=== PATIENT | male | born 1980 | race Caucasian/White ===

== ENCOUNTER 2018-05-31 15:23 | Emergency (ER) | payer OTHER ==
[~2018-05-31] VITALS: Ht 177.8 cm; Wt 88.6 kg
[2018-05-31 15:49] VITALS: Ht 177.8 cm; Wt 88.6 kg
[2018-05-31] MEDS ORDERED: ROBAXIN-750750 MG PO (16:51)
[2018-05-31 16:57] VITALS: BP 109/49
== END 2018-05-31 16:49 | disposition home or self-care (01) ==
LOC: D.ER 15:23
DX: S43.402A Unspecified sprain of left shoulder joint, initial encounter (principal); W17.89XA Other fall from one level to another, initial encounter; Y93.89 Activity, other specified; Y92.019 Unspecified place in single-family (private) house as the place of occurrence of the external cause; F17.200 Nicotine dependence, unspecified, uncomplicated

== ENCOUNTER 2020-02-28 02:38 | Inpatient (IN) | payer MEDICAID ==
[~2020-02-28] VITALS: Ht 177.8 cm; Wt 99.8 kg
[~2020-02-28 02:38] MED LIST: ROBAXIN-750750 MG PO
[2020-02-28 03:10] VITALS: BP 112/61
[2020-02-28 03:21] LABS: BASOPHILS 0.2 % (0-2); EOSINOPHILS 0.5 % (0-7); HEMATOCRIT 49.5 % (42.0-54.0); HEMOGLOBIN 16.4 g/dL (13.5-17.5); IMMATURE GRANULOCYTES 0.2 % (0-5); LYMPHOCYTES 13.2 % (15-50); MCH 32.6 pg (26.0-34.0); MCHC 33.1 g/dL (31.0-37.0); MCV 98.4 fL (80.0-100.0); MEAN PLATELET VOLUME 10.2 fL (7.4-10.4); MONOCYTES 9.5 % (2-11); NEUTROPHILS 76.4 % (40-80); PLATELET COUNT 205 10x3/uL (130-400); RBC 5.03 10x6/uL (4.20-6.10); RDW 13.3 % (11.5-14.5); WBC 12.9 10x3/uL (4.8-10.8)
[2020-02-28 03:30] LABS: CALC OSMOLALITY 274 mosm/kg (275-300); CALCIUM 8.2 mg/dL (8.5-10.1); CARBON DIOXIDE 23.8 mmol/L (21.0-32.0); CHLORIDE - SERUM 105 mmol/L (98-107); CREATININE - SERUM 0.8 mg/dL (0.6-1.3); GLUCOSE 118 mg/dL (74-106); SODIUM 138 mmol/L (136-145); UREA NITROGEN 6 mg/dL (7-18); eGFR NON AFRICAN AMERICAN > 90 mL/min (90-120)
[2020-02-28 03:31] LABS: APTT 24.2 SECONDS (22.8-39.4); INR 0.91 (0.85-1.17); PROTIME 12.2 SECONDS (11.6-15.0)
[2020-02-28 03:57] LABS: ALBUMIN 3.9 g/dL (3.4-5.0); ALKALINE PHOSPHATASE 67 U/L (30-120); ALT (SGPT) 64 U/L (10-68); PRO BNP 77 pg/mL (0-125); PROTEIN - SERUM 7.3 g/dL (6.4-8.2)
[2020-02-28 03:59] LABS: CREATINE KINASE 1217 UL (21-232); TROPONIN-I 0.017 ng/mL (0.000-0.060)
[2020-02-28 04:00] LABS: CKMB 4.2 U/L (0.0-3.6)
[2020-02-28 05:35] VITALS: BP 113/69
[2020-02-28 09:08] VITALS: BP 145/73
[2020-02-28 11:11] VITALS: BP 145/73; BMI 31.6
[2020-02-28 16:00] VITALS: BP 132/66
[2020-02-28 21:11] VITALS: BP 132/93
[2020-02-29] VITALS: BP 132/75
[2020-02-29 04:00] VITALS: BP 155/87
[2020-02-29 05:38] LABS: HEMATOCRIT 43.6 % (42.0-54.0)
[2020-02-29 08:26] VITALS: BP 153/101
[2020-02-29 13:09] VITALS: BP 157/78
--- NOTE | 2020-02-29 15:58 | MORECARE ---
CASE MANAGEMENT DISCHARGE SUMMARY PATIENT: HA MAHMOOD UNIT: [id number] ADM DATE: 02/28/20 AGE: 39 : 76 SEX: M ROOM/BED: D.2231 AUTHOR: CHRISTOPHER LAMA PHYSICIAN: REFERRING PHYSICIAN: TD PRUITT MD DATE OF SERVICE: 02/29/20 Discharge Plan Patient Name: HA MAHMOOD [facility] [facility] 1980 Planned Disposition: Home Anticipated Discharge Date: Discharge Date: Expected LOS: Initial Reviewer: [email or web address] Initial Review Date: 02/28/2020 Generated: 02/29/20 4:57 pm DCPIA - Discharge Planning Initial Assessment Updated by [email or web address]: Delphine Madison on 02/29/20 3:56 pm * Is the patient Alert and Oriented? Yes * How many steps to enter\exit or inside your home? van * PCP NO PCP * [facility] * Preadmission Environment Home Alone * ADLs Independent * Equipment None * List name and contact numbers for known caregivers / representatives who currently or will assist patient after discharge: KRISTI MAHMOOD - FATHER - [phone], * Verbal permission to speak to the caregivers and representatives has been obtained from the patient. Yes * Community resources currently utilized None * Additional services required to return to the preadmission environment? No * Can the patient safely return to the preadmission environment? Yes * Has this patient been hospitalized within the prior 30 days at any hospital? No Patient Name: HA MAHMOOD Page 54938 at 1558 All edits/amendments must be made on the electronic document DICTATION DATE: 02/29/20 1557 GENERAL TECHNICIAN: IRAIS 02/29/20 1557 RPT#: [id number] DC DATE: STATUS: ADM IN [facility] [address] [place] [address] END OF REPORT
[2020-02-29 16:05] VITALS: BP 104/59
--- NOTE | 2020-02-29 16:11 | MORECARE ---
CASE MANAGEMENT DISCHARGE SUMMARY PATIENT: HA MAHMOOD UNIT: [id number] ADM DATE: 02/28/20 AGE: 39 : 76 SEX: M ROOM/BED: D.2231 AUTHOR: KELBY,DOC PHYSICIAN: REFERRING PHYSICIAN: TD PRUITT MD DATE OF SERVICE: 02/29/20 Discharge Plan Patient Name: HA MAHMOOD Facility: [facility]:[place] : 1980 Planned Disposition: Home Anticipated Discharge Date: Discharge Date: Expected LOS: Initial Reviewer: [email or web address] Initial Review Date: 02/28/2020 Generated: 02/29/20 5:10 pm Comments DCP- Discharge Planning Updated by [email or web address]: Delphine Madison on 02/29/20 3:[address] Patient Name: HA MAHMOOD Admission Status: ER Accout number: [id number] Admission Date: 02-28-2020 : 1980 Admission Diagnosis: Attending: TD PRUITT Current LOS: 1 Anticipated DC Date: Planned Disposition: Home Primary Insurance: MEDICAID [place] PENDING Discharge Planning Comments: CM met with patient at bedside after explaining CM role and obtaining verbal consent. Patient lives his conversion van where he is independent with his care and plans to return there upon discharge. Patient states he has been off work for approximately 2 yrs on [employer]. 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 Patient has a broken ankle / leg. and will be non weight bearing for 6-8 wks. Patient has Medicaid pending which will help with medical, medication and possible transportation to f/u doctor appointments once it is approved. CM discussed availability / needs of home health and medical equipment. Patient is going to need either crutches or walker upon discharge. He will also need help with discharge medications. CM will see about finding DME needs and medication. CM gave patient SNAP application to help with food. CM will give information on [place] and [place] [facility] information. Patient states he may be able to get his Dad to drive him home upon discharge. CM will continue to follow and assist as needed with discharge planning / needs. Element Setter: Delphine Madison DCPIA - Discharge Planning Initial Assessment Updated by [email or web address]: Delphine Madison on 02/29/20 3:56 pm * Is the patient Alert and Oriented? Yes * How many steps to enter\exit or inside your home? van * PCP NO PCP * [facility] * Preadmission Environment Home Alone * ADLs Independent * Equipment None * List name and contact numbers for known caregivers / representatives who currently or will assist patient after discharge: KRISTI MAHMOOD - [facility] - [phone], * Verbal permission to speak to the caregivers and representatives has been obtained from the patient. Yes * Community resources currently utilized None * Additional services required to return to the preadmission environment? No * Can the patient safely return to the preadmission environment? Yes * Has this patient been hospitalized within the prior 30 days at any hospital? No Last DP export: 02/29/20 2:58 pm Patient Name: HA MAHMOOD Page [id number] at 1611 All edits/amendments must be made on the electronic document DICTATION DATE: 02/29/20 161 HUMANITIES DIVISION CHAIR: IRAIS 02/29/20 161 RPT#: [id number] DC DATE: STATUS: ADM IN [facility] [address] [place] [address] END OF REPORT
[2020-02-29 19:51] VITALS: BP 187/92
[2020-03-01] VITALS: BP 146/90
[2020-03-01 04:00] VITALS: BP 145/103
[2020-03-01 05:24] LABS: HEMATOCRIT 40.5 % (42.0-54.0); HEMOGLOBIN 12.8 g/dL (13.5-17.5)
[2020-03-01 08:38] LABS: CKMB 0.6 U/L (0.0-3.6); CREATINE KINASE 363 UL (21-232); TROPONIN-I 0.019 ng/mL (0.000-0.060)
[2020-03-01 08:53] VITALS: BP 167/97
[2020-03-01 10:28] VITALS: BP 144/82
[2020-03-01 12:54] VITALS: BMI 31.5
[2020-03-01 14:15] VITALS: Ht 177.8 cm; Wt 99.8 kg
[2020-03-01 17:03] VITALS: BP 155/92
[2020-03-01 20:19] VITALS: BP 154/88
[2020-03-02 01:04] VITALS: BP 133/76
[2020-03-02 04:59] VITALS: BP 135/77
[2020-03-02 05:21] LABS: BASOPHILS 0.3 % (0-2); EOSINOPHILS 3.2 % (0-7); HEMOGLOBIN 13.9 g/dL (13.5-17.5); IMMATURE GRANULOCYTES 0.1 % (0-5); LYMPHOCYTES 26.7 % (15-50); MCH 32.8 pg (26.0-34.0); MCHC 33.1 g/dL (31.0-37.0); MCV 99.1 fL (80.0-100.0); MEAN PLATELET VOLUME 10.6 fL (7.4-10.4); MONOCYTES 10.4 % (2-11); NEUTROPHILS 59.3 % (40-80); PLATELET COUNT 199 10x3/uL (130-400); RBC 4.24 10x6/uL (4.20-6.10); RDW 12.8 % (11.5-14.5); WBC 8.7 10x3/uL (4.8-10.8)
[2020-03-02 05:30] LABS: CALC OSMOLALITY 275 mosm/kg (275-300); CALCIUM 8.8 mg/dL (8.5-10.1); CARBON DIOXIDE 29.5 mmol/L (21.0-32.0); CHLORIDE - SERUM 100 mmol/L (98-107); CREATININE - SERUM 0.9 mg/dL (0.6-1.3); GLUCOSE 96 mg/dL (74-106); POTASSIUM - SERUM 3.6 mmol/L (3.5-5.1); SODIUM 139 mmol/L (136-145); UREA NITROGEN 8 mg/dL (7-18); eGFR NON AFRICAN AMERICAN > 90 mL/min (90-120)
[2020-03-02 09:19] VITALS: BP 146/93
[2020-03-02 14:42] VITALS: BP 137/90
[2020-03-02 20:16] VITALS: BP 131/80
--- NOTE | 2020-03-02 20:49 | MORECARE ---
CASE MANAGEMENT DISCHARGE SUMMARY PATIENT: HA MAHMOOD UNIT: [id number] ADM DATE: 02/28/20 AGE: 39 : 76 SEX: M ROOM/BED: D.2131 AUTHOR: KELBY,DOC PHYSICIAN: REFERRING PHYSICIAN: TD PRUITT MD DATE OF SERVICE: 03/02/20 Discharge Plan Patient Name: HA MAHMOOD Facility: [facility]:[place] : 1980 Planned Disposition: Home Anticipated Discharge Date: Discharge Date: Expected LOS: Initial Reviewer: [email or web address] Initial Review Date: 02/28/2020 Generated: 03/02/20 9:48 pm Comments DCP- Discharge Planning Updated by [email or web address]: Delphine Madison on 03/02/20 7:[address] LATE ENTRY 03/01/20 CM gave patient SNAP application and faxed to [facility] office for expedite. CM also faxed in notification that patient was in hospital to his chief digital media officer. CM CAN'T FIX THAT THE PATIENT LIVES IN A VAN. CM will see about assistance for DME needs and meds. CM will continue to follow and assist as needed with discharge planning / needs. DCP- Discharge Planning Updated by [email or web address]: Delphine Madison on 02/29/20 3:[address] Patient Name: HA MAHMOOD Admission Status: ER Accout number: [id number] Admission Date: 02-28-2020 : 1980 Admission Diagnosis: Attending: TD PRUITT Current LOS: 1 Anticipated DC Date: Planned Disposition: Home Primary Insurance: MEDICAID [place] PENDING Discharge Planning Comments: CM met with patient at bedside after explaining CM role and obtaining verbal consent. Patient lives his conversion van where he is independent with his care and plans to return there upon discharge. Patient states he has been off work for approximately 2 yrs on [employer]. 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 Patient has a broken ankle / leg. and will be non weight bearing for 6-8 wks. Patient has Medicaid pending which will help with medical, medication and possible transportation to f/u doctor appointments once it is approved. CM discussed availability / needs of home health and medical equipment. Patient is going to need either crutches or walker upon discharge. He will also need help with discharge medications. CM will see about finding DME needs and medication. CM gave patient SNAP application to help with food. CM will give information on food [place] and long term information. Patient states he may be able to get his Dad to drive him home upon discharge. CM will continue to follow and assist as needed with discharge planning / needs. Database Development Project Manager: Delphine Madison DCPIA - Discharge Planning Initial Assessment Updated by [email or web address]: Delphine Madison on 02/29/20 3:56 pm * Is the patient Alert and Oriented? Yes * How many steps to enter\exit or inside your home? van * PCP NO PCP * [facility] * Preadmission Environment Home Alone * ADLs Independent * Equipment None * List name and contact numbers for known caregivers / representatives who currently or will assist patient after discharge: KRISTI MAHMOOD - [facility] - [phone], * Verbal permission to speak to the caregivers and representatives has been obtained from the patient. Yes * Community resources currently utilized None * Additional services required to return to the preadmission environment? No * Can the patient safely return to the preadmission environment? Yes * Has this patient been hospitalized within the prior 30 days at any hospital? No Last DP export: 02/29/20 3:11 pm Patient Name: HA MAHMOOD Page 56791 at 2049 All edits/amendments must be made on the electronic document DICTATION DATE: 03/02/202047 ENROLLMENT NURSE: IRAIS 03/02/202047 RPT#: [id number] DC DATE: STATUS: ADM IN [facility] [address] [place] [address] END OF REPORT
--- NOTE | 2020-03-03 06:43 | OP ---
PATIENT NAME: HA MAHMOOD MEDICAL RECORD: [id number] :[birth year] LOCATION:D. D.2131 ADMISSION DATE:02/28/20 SURGEON: TD PRUITT MD DATE OF OPERATION: 02/28/2020 PREOPERATIVE DIAGNOSIS: Displaced spiral tib-fib fracture. POSTOPERATIVE DIAGNOSIS: Displaced spiral tib-fib fracture. PROCEDURE: Open reduction internal fixation of right tib-fib fracture. SURGEON: Td Pruitt MD HEATING UNIT INSTALLER: AMAN Aparicio ANESTHESIOLOGIST: Jonatan Burgess MD INTRAOPERATIVE COMPLICATIONS: Essentially none. SUMMARY OF PATHOLOGIC FINDINGS: The patient had a spiral distal tibia fracture well above the articular surface, but also had an elongated spiral fibular fracture proximally that was not addressed operatively as the patient did not have neurovascular findings and it was well aligned postoperatively. A distal medial tibial plate from [employer] was utilized in a subcutaneous insertion fashion again under direct fluoroscopy. OPERATIVE SUMMARY IN DETAIL: After obtaining the appropriate preoperative orthopedic surgery consent as well as anesthetic consultation, evaluation and clearance, the patient was brought to the operating room and placed on the operating table in a supine position. After general laryngeal mask airway was administered, tourniquet was placed on the proximal aspect of the right lower extremity. Right lower extremity was prepped and draped in routine sterile fashion. The leg was elevated and exsanguinated, tourniquet was inflated to 350 mmHg. After appropriate timeout was taken and agreed upon by all given the patient's unique identifiers, a fluoroscopic-guided incision was made over the medial aspect of the distal tibia exactly over the medial tibial malleolus, subcutaneous periosteal elevation was done in order to not disrupt the skin to appropriate proximal point. The plate was then inserted and then again under direct fluoroscopic guidance, the distal screw was placed followed by proximal screw. The fibula was held anatomically restored in both AP and lateral planes and a sterile drill and fill was done with both combination of compression and locking screws. This did result in excellent AP reconstruction with only slight displacement in the lateral plane. Having completed, this wound was irrigated and closed with #1 Vicryl, 2-0 Vicryl, and skin mabel by AMAN Aparicio. Sterile dressings were applied. Tourniquet was deflated and a posterior L and U splint was applied. The patient was awakened, taken to recovery room in stable condition. All final needle and sponge counts were correct. TRANSINT:[id number] Voice Confirmation ID: [id number] DOCUMENT ID: [id number] OPERATIVE REPORT [id number] HA MAHMOOD MD, TD DESAI at 0643 CC: [id number] DICTATION DATE: 02/29/20 1023 PAPER COATER: 02/29/20 2133 ADM IN [facility] [address] [place] [address]
[2020-03-03 08:55] VITALS: BP 122/85
[2020-03-03 12:22] VITALS: BP 102/86
[2020-03-03 17:10] VITALS: BP 132/82
[2020-03-03 20:22] VITALS: BP 133/98
[2020-03-04 04:35] LABS: BASOPHILS 0.2 % (0-2); EOSINOPHILS 5.8 % (0-7); HEMATOCRIT 39.2 % (42.0-54.0); HEMOGLOBIN 12.6 g/dL (13.5-17.5); IMMATURE GRANULOCYTES 0.3 % (0-5); LYMPHOCYTES 22.1 % (15-50); MCHC 32.1 g/dL (31.0-37.0); MCV 99.5 fL (80.0-100.0); MEAN PLATELET VOLUME 10.7 fL (7.4-10.4); NEUTROPHILS 59.6 % (40-80); RBC 3.94 10x6/uL (4.20-6.10); RDW 12.6 % (11.5-14.5); WBC 9.1 10x3/uL (4.8-10.8)
[2020-03-04 04:45] LABS: PLATELET COUNT 254 10x3/uL (130-400)
[2020-03-04 04:46] LABS: CALC OSMOLALITY 264 mosm/kg (275-300); CALCIUM 8.3 mg/dL (8.5-10.1); CARBON DIOXIDE 30.9 mmol/L (21.0-32.0); CHLORIDE - SERUM 99 mmol/L (98-107); GLUCOSE 113 mg/dL (74-106); POTASSIUM - SERUM 3.7 mmol/L (3.5-5.1); SODIUM 133 mmol/L (136-145); UREA NITROGEN 8 mg/dL (7-18); eGFR NON AFRICAN AMERICAN 87 mL/min (90-120)
[2020-03-04 13:25] VITALS: BP 139/80
[2020-03-04 20:00] VITALS: BP 104/77
[2020-03-05] VITALS: BP 148/84
[2020-03-05 04:00] VITALS: BP 141/88
[2020-03-05 04:31] LABS: BASOPHILS 0.2 % (0-2); EOSINOPHILS 5.4 % (0-7); HEMATOCRIT 38.9 % (42.0-54.0); HEMOGLOBIN 12.2 g/dL (13.5-17.5); IMMATURE GRANULOCYTES 0.2 % (0-5); MCH 31.4 pg (26.0-34.0); MCHC 31.4 g/dL (31.0-37.0); MEAN PLATELET VOLUME 10.2 fL (7.4-10.4); MONOCYTES 13.8 % (2-11); NEUTROPHILS 57.4 % (40-80); PLATELET COUNT 285 10x3/uL (130-400); RBC 3.89 10x6/uL (4.20-6.10); RDW 12.7 % (11.5-14.5); WBC 8.9 10x3/uL (4.8-10.8)
[2020-03-05 05:03] LABS: CALC OSMOLALITY 268 mosm/kg (275-300); CALCIUM 8.7 mg/dL (8.5-10.1); CARBON DIOXIDE 29.8 mmol/L (21.0-32.0); CHLORIDE - SERUM 99 mmol/L (98-107); GLUCOSE 106 mg/dL (74-106); POTASSIUM - SERUM 4.1 mmol/L (3.5-5.1); SODIUM 135 mmol/L (136-145); UREA NITROGEN 10 mg/dL (7-18); eGFR NON AFRICAN AMERICAN 87 mL/min (90-120)
[2020-03-05] MEDS ORDERED: ELIQUIS2.5 MG PO (09:37)
[2020-03-05 09:38] VITALS: BP 143/84
[2020-03-05] MEDS ORDERED: DILAUDID4 MG PO (09:38)
--- NOTE | 2020-03-05 10:24 | MORECARE ---
CASE MANAGEMENT DISCHARGE SUMMARY PATIENT: HA MAHMOOD UNIT: [id number] ADM DATE: 02/28/20 AGE: 39 : 76 SEX: M ROOM/BED: D.2222 AUTHOR: KELBY,DOC PHYSICIAN: REFERRING PHYSICIAN: TD PRUITT MD DATE OF SERVICE: 03/05/20 Discharge Plan Patient Name: HA MAHMOOD Facility: [facility]:[place] : 1980 Planned Disposition: Home Anticipated Discharge Date: Discharge Date: Expected LOS: Initial Reviewer: [email or web address] Initial Review Date: 02/28/2020 Generated: 03/05/20 11:23 am Comments DCP- Discharge Planning Updated by [email or web address]: Delphine Madison on 03/02/20 7:[address] LATE ENTRY 03/01/20 CM gave patient SNAP application and faxed to [facility] office for expedite. CM also faxed in notification that patient was in hospital to his staff antisubmarine officer. CM CAN'T FIX THAT THE PATIENT LIVES IN A VAN. CM will see about assistance for DME needs and meds. CM will continue to follow and assist as needed with discharge planning / needs. DCP- Discharge Planning Updated by [email or web address]: Delphine Madison on 02/29/20 3:[address] Patient Name: HA MAHMOOD Admission Status: ER Accout number: [id number] Admission Date: 02-28-2020 : 1980 Admission Diagnosis: Attending: TD PRUITT Current LOS: 1 Anticipated DC Date: Planned Disposition: Home Primary Insurance: MEDICAID [place] PENDING Discharge Planning Comments: CM met with patient at bedside after explaining CM role and obtaining verbal consent. Patient lives his conversion van where he is independent with his care and plans to return there upon discharge. Patient states he has been off work for approximately 2 yrs on [employer]. 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 Patient has a broken ankle / leg. and will be non weight bearing for 6-8 wks. Patient has Medicaid pending which will help with medical, medication and possible transportation to f/u doctor appointments once it is approved. CM discussed availability / needs of home health and medical equipment. Patient is going to need either crutches or walker upon discharge. He will also need help with discharge medications. CM will see about finding DME needs and medication. CM gave patient SNAP application to help with food. CM will give information on [place] and long term information. Patient states he may be able to get his Dad to drive him home upon discharge. CM will continue to follow and assist as needed with discharge planning / needs. Dental Technician: Delphine Madison DCPIA - Discharge Planning Initial Assessment Updated by [email or web address]: Delphine Madison on 02/29/20 3:56 pm * Is the patient Alert and Oriented? Yes * How many steps to enter\exit or inside your home? van * PCP NO PCP * [facility] * Preadmission Environment Home Alone * ADLs Independent * Equipment None * List name and contact numbers for known caregivers / representatives who currently or will assist patient after discharge: KRISTI MAHMOOD - [facility] - [phone], * Verbal permission to speak to the caregivers and representatives has been obtained from the patient. Yes * Community resources currently utilized None * Additional services required to return to the preadmission environment? No * Can the patient safely return to the preadmission environment? Yes * Has this patient been hospitalized within the prior 30 days at any hospital? No External Providers External Provider: OTHER-OTHER Next Contact Date: Service Request Date: Service Type: Resolution: Reviewer: Comments: Last DP export: 03/02/20 7:49 pm Patient Name: HA MAHMOOD Page [phone] at 1024 All edits/amendments must be made on the electronic document DICTATION DATE: 03/05/20 1023 CONFERENCE SERVICE COORDINATOR: IRAIS 03/05/20 1023 RPT#: [id number] DC DATE: STATUS: ADM IN [facility] [address] [place] [address] END OF REPORT
[2020-03-05 13:06] VITALS: BP 110/72
[2020-03-05 16:28] VITALS: BP 133/84
[2020-03-05 20:00] VITALS: BP 139/77
[2020-03-06] VITALS: BP 140/74
[2020-03-06 04:00] VITALS: BP 137/70
[2020-03-06 05:34] LABS: BASOPHILS 0.4 % (0-2); EOSINOPHILS 6.3 % (0-7); HEMATOCRIT 37.4 % (42.0-54.0); IMMATURE GRANULOCYTES 0.2 % (0-5); MCH 31.9 pg (26.0-34.0); MCHC 32.1 g/dL (31.0-37.0); MCV 99.5 fL (80.0-100.0); MEAN PLATELET VOLUME 10.2 fL (7.4-10.4); MONOCYTES 17.2 % (2-11); NEUTROPHILS 56.9 % (40-80); PLATELET COUNT 316 10x3/uL (130-400); RBC 3.76 10x6/uL (4.20-6.10); RDW 12.7 % (11.5-14.5); WBC 8.3 10x3/uL (4.8-10.8)
[2020-03-06 05:47] LABS: CALC OSMOLALITY 275 mosm/kg (275-300); CALCIUM 8.9 mg/dL (8.5-10.1); CARBON DIOXIDE 28.1 mmol/L (21.0-32.0); CHLORIDE - SERUM 102 mmol/L (98-107); GLUCOSE 108 mg/dL (74-106); POTASSIUM - SERUM 4.1 mmol/L (3.5-5.1); SODIUM 138 mmol/L (136-145); UREA NITROGEN 11 mg/dL (7-18); eGFR NON AFRICAN AMERICAN 87 mL/min (90-120)
[2020-03-06 09:00] VITALS: BP 137/68
[2020-03-06 14:18] VITALS: BP 120/74
[2020-03-06 20:00] VITALS: BP 128/84
[2020-03-07] VITALS: BP 130/76
[2020-03-07 04:00] VITALS: BP 131/84
[2020-03-07 05:28] LABS: BASOPHILS 0.3 % (0-2); EOSINOPHILS 5.9 % (0-7); HEMATOCRIT 37.3 % (42.0-54.0); HEMOGLOBIN 11.9 g/dL (13.5-17.5); IMMATURE GRANULOCYTES 0.4 % (0-5); LYMPHOCYTES 25.8 % (15-50); MCH 31.6 pg (26.0-34.0); MCHC 31.9 g/dL (31.0-37.0); MCV 98.9 fL (80.0-100.0); MEAN PLATELET VOLUME 10.4 fL (7.4-10.4); MONOCYTES 13.2 % (2-11); NEUTROPHILS 54.4 % (40-80); PLATELET COUNT 339 10x3/uL (130-400); RBC 3.77 10x6/uL (4.20-6.10); RDW 12.7 % (11.5-14.5); WBC 7.6 10x3/uL (4.8-10.8)
[2020-03-07 05:55] LABS: CALC OSMOLALITY 277 mosm/kg (275-300); CALCIUM 8.7 mg/dL (8.5-10.1); CARBON DIOXIDE 30.9 mmol/L (21.0-32.0); CHLORIDE - SERUM 101 mmol/L (98-107); GLUCOSE 107 mg/dL (74-106); POTASSIUM - SERUM 4.1 mmol/L (3.5-5.1); SODIUM 139 mmol/L (136-145); UREA NITROGEN 13 mg/dL (7-18); eGFR NON AFRICAN AMERICAN 87 mL/min (90-120)
[2020-03-07 17:50] VITALS: BP 139/82
[2020-03-07 22:30] VITALS: BP 157/92
[2020-03-08 01:25] VITALS: BP 161/87
[2020-03-08 04:13] VITALS: BP 144/67
[2020-03-08 04:51] LABS: BASOPHILS 0.3 % (0-2); EOSINOPHILS 6.3 % (0-7); HEMATOCRIT 37.5 % (42.0-54.0); HEMOGLOBIN 12.2 g/dL (13.5-17.5); IMMATURE GRANULOCYTES 0.4 % (0-5); MCH 31.9 pg (26.0-34.0); MCHC 32.5 g/dL (31.0-37.0); MCV 98.2 fL (80.0-100.0); MONOCYTES 11.3 % (2-11); NEUTROPHILS 57.7 % (40-80); PLATELET COUNT 372 10x3/uL (130-400); RBC 3.82 10x6/uL (4.20-6.10); RDW 12.6 % (11.5-14.5); WBC 8.9 10x3/uL (4.8-10.8)
[2020-03-08 05:24] LABS: ANION GAP 10.6 mmol/L (8-16); CALCIUM 8.7 mg/dL (8.5-10.1); CARBON DIOXIDE 29.5 mmol/L (21.0-32.0); CREATININE - SERUM 1.2 mg/dL (0.6-1.3); POTASSIUM - SERUM 4.1 mmol/L (3.5-5.1)
[2020-03-08] MEDS ORDERED: VISTARIL50 MG PO ×2 (08:32→08:33)
[2020-03-08 09:27] VITALS: BP 144/92
[2020-03-08] MEDS ORDERED: OMNICEF300 MG PO (09:36)
--- NOTE | 2020-03-08 11:51 | MORECARE ---
CASE MANAGEMENT DISCHARGE SUMMARY PATIENT: HA MAHMOOD UNIT: [id number] ADM DATE: 02/28/20 AGE: 39 : 76 SEX: M ROOM/BED: D.2222 AUTHOR: KELBY,DOC PHYSICIAN: REFERRING PHYSICIAN: TD PRUITT MD DATE OF SERVICE: 03/08/20 Discharge Plan Patient Name: HA MAHMOOD Facility: [facility]:[place] : 1980 Planned Disposition: Home Anticipated Discharge Date: Discharge Date: Expected LOS: Initial Reviewer: [email or web address] Initial Review Date: 02/28/2020 Generated: 03/08/20 12:51 pm Comments DCP- Discharge Planning Updated by [email or web address]: Aileen Richardson on 03/08/20 10:[address] I spoke with patient at length today, he is questioning getting crutches. I explained to him that per Ortho they wanted him to have a walker. An [employer] 30 day trial coupon was given to the patient. I also have had Everett with [facility] call him to answer his questions. He was working on trying to find him a place to go but said it would be after 4:00pm before he could leave. CM to follow and assist as needed DCP- Discharge Planning Updated by [id number]: Delphine Madison on 03/02/20 7:[address] LATE ENTRY 03/01/20 CM gave patient SNAP application and faxed to [facility] office for expedite. CM also faxed in notification that patient was in hospital to his chief quality officer. CM CAN'T FIX THAT THE PATIENT LIVES IN A VAN. CM will see about assistance for DME needs and meds. CM will continue to follow and assist as needed with discharge planning / needs. DCP- Discharge Planning Updated by [email or web address]: Delphine Madison on 02/29/20 3:[address] Patient Name: HA MAHMOOD Admission Status: ER Accout number: [id number] Admission Date: 02-28-2020 : 1980 Admission Diagnosis: Attending: TD PRUITT Current LOS: 1 Anticipated DC Date: Planned Disposition: Home Primary Insurance: MEDICAID [place] PENDING Discharge Planning Comments: CM met with patient at bedside after explaining CM role and obtaining verbal consent. Patient lives his conversion van where he is independent with his care and plans to return there upon discharge. Patient states he has been off work for approximately 2 yrs on [employer]. 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 Patient has a broken ankle / leg. and will be non weight bearing for 6-8 wks. Patient has Medicaid pending which will help with medical, medication and possible transportation to f/u doctor appointments once it is approved. CM discussed availability / needs of home health and medical equipment. Patient is going to need either crutches or walker upon discharge. He will also need help with discharge medications. CM will see about finding DME needs and medication. CM gave patient SNAP application to help with food. CM will give information on [place] and assisted information. Patient states he may be able to get his Dad to drive him home upon discharge. CM will continue to follow and assist as needed with discharge planning / needs. Eight Section Blower: Delphine GEORGE - Discharge Planning Initial Assessment Updated by [email or web address]: Delphine Madison on 02/29/20 3:56 pm * Is the patient Alert and Oriented? Yes * How many steps to enter\exit or inside your home? van * PCP NO PCP * [facility] * Preadmission Environment Home Alone * ADLs Independent * Equipment None * List name and contact numbers for known caregivers / representatives who currently or will assist patient after discharge: KRISTI MAHMOOD - FATHER - [phone], * Verbal permission to speak to the caregivers and representatives has been obtained from the patient. Yes * Community resources currently utilized None * Additional services required to return to the preadmission environment? No * Can the patient safely return to the preadmission environment? Yes * Has this patient been hospitalized within the prior 30 days at any hospital? No Last DP export: 03/05/20 9:24 a Patient Name: HA MAHMOOD Page 82983 at 1151 All edits/amendments must be made on the electronic document DICTATION DATE: 03/08/20 1151 MAGNETO SPECIALIST: IRAIS 03/08/20 1151 RPT#: [id number] DC DATE: STATUS: ADM IN [facility] [address] [place] [address] END OF REPORT
--- NOTE | 2020-03-09 09:45 | MORECARE ---
CASE MANAGEMENT DISCHARGE SUMMARY PATIENT: HA MAHMOOD UNIT: [id number] ADM DATE: 02/28/20 AGE: 39 : 76 SEX: M ROOM/BED: D.2222 AUTHOR: KELBY,DOC PHYSICIAN: REFERRING PHYSICIAN: TD PRUITT MD DATE OF SERVICE: 03/09/20 Discharge Plan Patient Name: HA MAHMOOD Facility: [facility]:[place] : 1980 Planned Disposition: Home Anticipated Discharge Date: Discharge Date: 03/08/2020 Expected LOS: 0 Initial Reviewer: [email or web address] Initial Review Date: 02/28/2020 Generated: 03/09/20 10:44 am Comments DCP- Discharge Planning Updated by [email or web address]: Aileen Richardson on 03/08/20 10:[address] I spoke with patient at length today, he is questioning getting crutches. I explained to him that per Ortho they wanted him to have a walker. An [employer] 30 day trial coupon was given to the patient. I also have had Everett with [facility] call him to answer his questions. He was working on trying to find him a place to go but said it would be after 4:00pm before he could leave. CM to follow and assist as needed DCP- Discharge Planning Updated by [id number]: Delphine Madison on 03/02/20 7:[address] LATE ENTRY 03/01/20 CM gave patient SNAP application and faxed to [facility] office for expedite. CM also faxed in notification that patient was in hospital to his maritime officer. CM CAN'T FIX THAT THE PATIENT LIVES IN A VAN. CM will see about assistance for DME needs and meds. CM will continue to follow and assist as needed with discharge planning / needs. DCP- Discharge Planning Updated by [email or web address]: Delphine Madison on 02/29/20 3:[address] Patient Name: HA MAHMOOD Admission Status: ER Accout number: [id number] Admission Date: 02-28-2020 : 1980 Admission Diagnosis: Attending: TD PRUITT Current LOS: 1 Anticipated DC Date: Planned Disposition: Home Primary Insurance: MEDICAID [place] PENDING Discharge Planning Comments: CM met with patient at bedside after explaining CM role and obtaining verbal consent. Patient lives his conversion van where he is independent with his care and plans to return there upon discharge. Patient states he has been off work for approximately 2 yrs on [employer] comp. 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 Patient has a broken ankle / leg. and will be non weight bearing for 6-8 wks. Patient has Medicaid pending which will help with medical, medication and possible transportation to f/u doctor appointments once it is approved. CM discussed availability / needs of home health and medical equipment. Patient is going to need either crutches or walker upon discharge. He will also need help with discharge medications. CM will see about finding DME needs and medication. CM gave patient SNAP application to help with food. CM will give information on food [place] and penitentiary information. Patient states he may be able to get his Dad to drive him home upon discharge. CM will continue to follow and assist as needed with discharge planning / needs. Supervisor Mill: Delphine GEORGE - Discharge Planning Initial Assessment Updated by [email or web address]: Delphine Madison on 02/29/20 3:56 pm * Is the patient Alert and Oriented? Yes * How many steps to enter\exit or inside your home? van * PCP NO PCP * [facility] * Preadmission Environment Home Alone * ADLs Independent * Equipment None * List name and contact numbers for known caregivers / representatives who currently or will assist patient after discharge: KRISTI MAHMOOD - FATHER - [phone], * Verbal permission to speak to the caregivers and representatives has been obtained from the patient. Yes * Community resources currently utilized None * Additional services required to return to the preadmission environment? No * Can the patient safely return to the preadmission environment? Yes * Has this patient been hospitalized within the prior 30 days at any hospital? No Last DP export: 03/08/20 10:51 a Patient Name: HA MAHMOOD Page 37513 at 0945 All edits/amendments must be made on the electronic document DICTATION DATE: 03/09/20943 ENVIRONMENTAL REMEDIATION ENGINEER: IRAIS 03/09/20943 RPT#: [id number] DC DATE:03/08/20 STATUS: DIS IN [facility] [address] [place] [address] END OF REPORT
== END 2020-03-08 14:22 | disposition home or self-care (01) | DRG 493 ==
LOC: OBSVTIME → D.ER 02:38 → D.OPS 06:43 → D.ER 06:51 → D.MS 08:22 → D.ER 08:26 → OBSVTIME 08:27 → D.M2 08:29 → D.MS 08:29 → D.M2 03-01 09:50 → D.MS 03-04 15:18
PROVIDERS: Family Medicine; Internal Medicine Nephrology; ADMIT Orthopaedic Surgery; ATTEND Orthopaedic Surgery
PROC: 0QSG04Z Reposition Right Tibia with Internal Fixation Device, Open Approach (ICD-10-PCS; principal; 2020-02-28 06:53)
DX: S82.241A Displaced spiral fracture of shaft of right tibia, initial encounter for closed fracture (principal); F17.213 Nicotine dependence, cigarettes, with withdrawal; M62.82 Rhabdomyolysis; S82.441A Displaced spiral fracture of shaft of right fibula, initial encounter for closed fracture; I10 Essential (primary) hypertension; F10.10 Alcohol abuse, uncomplicated; Y90.7 Blood alcohol level of 200-239 mg/100 ml; W19.XXXA Unspecified fall, initial encounter; Z86.73 Personal history of transient ischemic attack (TIA), and cerebral infarction without residual deficits

== ENCOUNTER 2020-04-06 10:08 | Day surgery (SDC) | payer MEDICAID ==
[~2020-04-06] VITALS: Ht 177.8 cm; Wt 93.2 kg
--- NOTE | ~2020-04-06 | OP ---
PATIENT NAME: HA DE LA ROSA MEDICAL RECORD: [id number] :78 LOCATION:[facility] ADMISSION DATE: SURGEON: ELLIE NICOLE MD DATE OF OPERATION: 04/06/2020 PROCEDURE: EGD with biopsy. REFERRING PHYSICIAN: Dr. Osiel Aguirre. INDICATIONS: Mr. De La Rosa is a pleasant 40-year-old gentleman with a history of heartburn, nausea, vomiting, dysphagia, epigastric abdominal pain, which has been present for 5 years, became progressively worse over the past 6 months. He drinks 4-6 beers daily, sometimes up to 12 beers a day. He has had a weight loss of 25 pounds since he broke his foot. He presents for outpatient EGD. PREMEDICATIONS: Total IV anesthesia (propofol 350 mg, history of CVA). INSTRUMENT: [email or web address] video gastroscope. PROCEDURE AND FINDINGS: After receiving informed consent, Mr. De La Rosa's posterior pharynx was anesthetized with Cetacaine spray, placed in left lateral decubitus position, sedated as per anesthesia. After achieving an adequate level of sedation, gastroscope was introduced per orally and advanced to the duodenum without difficulty. His esophageal mucosa was without ulcers, strictures, or masses. The GE junction was slightly irregular in appearance suggestive of gastroesophageal reflux. Biopsies were taken from the mid and distal esophagus. Small hiatal hernia was present. Gastric mucosa was notable for [id number]-wk-[id number] diffuse erythema and antral biopsies were obtained to rule out Helicobacter pylori. The folds in the body of the stomach were prominent, but no varices were appreciated. No lesions were seen in the cardia or fundus, body of the stomach or antrum. Pylorus was patent and competent. Duodenal mucosa was without erythema or ulcers, appeared normal to the second portion. Gastroscope was then withdrawn. Mr. De La Rosa tolerated the procedure well, no immediate complications. ASSESSMENT: 1. Irregular Z-line suggestive of gastroesophageal reflux, esophagitis, status post biopsies for mid and distal esophagus. 2. Small hiatal hernia. 3. Gastritis. RECOMMENDATIONS: 1. Follow up histopathology. 2. Prilosec 40 mg daily. 3. Reflux precautions. 4. I recommend markedly decreasing alcohol consumption. 5. Screening colonoscopy at age 43. TRANSINT:[id number] Voice Confirmation ID: [id number] DOCUMENT ID: [id number] OPERATIVE REPORT [id number] TIMOTEO,HA ELLIE MTZ MD CC: ADELA AGUIRRE [id number] DICTATION DATE: 04/06/20 1246 NEUROLOGY HOSPITALIST: 04/06/20 150[address] [facility] [place] 04/06/20 [place] [id number] [place] [address]
[~2020-04-06 10:08] MED LIST changes: +DILAUDID4 MG PO; +ELIQUIS2.5 MG PO; +OMNICEF300 MG PO; +VISTARIL50 MG PO
[2020-04-06 11:22] VITALS: BP 153/96; Ht 177.8 cm; Wt 93.2 kg
[2020-04-06 12:08] LABS: BASOPHILS 0.2 % (0-2); EOSINOPHILS 7.4 % (0-7); HEMATOCRIT 49.7 % (42.0-54.0); HEMOGLOBIN 16.6 g/dL (13.5-17.5); IMMATURE GRANULOCYTES 0.2 % (0-5); LYMPHOCYTES 22.5 % (15-50); MCH 31.8 pg (26.0-34.0); MCHC 33.4 g/dL (31.0-37.0); MCV 95.2 fL (80.0-100.0); MEAN PLATELET VOLUME 10.3 fL (7.4-10.4); MONOCYTES 8.7 % (2-11); RBC 5.22 10x6/uL (4.20-6.10); WBC 9.6 10x3/uL (4.8-10.8)
[2020-04-06 12:27] LABS: PLATELET COUNT 196 10x3/uL (130-400)
--- NOTE | 2020-04-06 14:44 | NUR ---
1345-DR NICOLE HERE TO REPORT FINDINGS AND ANSWER QUESTIONS. 1350-DISCHARGE INSTRUCTIONS REVIEWED 1400-D/C HOME VIA HOME WHEELCHAIR TO FRIEND.
== END 2020-04-06 14:00 | disposition home or self-care (01) ==
LOC: D.OPS 10:08
PROVIDERS: Anesthesiology; ATTEND Internal Medicine Gastroenterology
DX: R12 Heartburn (principal); R11.2 Nausea with vomiting, unspecified; R13.10 Dysphagia, unspecified; R63.4 Abnormal weight loss